=== PATIENT | female | born 2000 | race African-American/Black ===

== ENCOUNTER 2019-01-03 20:29 | Inpatient (IN) ==
[2019-01-03 21:16] LABS: Hematocrit (blood only) 35.6 % (37-47); Hemoglobin 11.8 g/dL (12.0-16.0); Mean Corpuscular Hemoglobin 27.8 pg (25-34); Mean Corpuscular Hgb Conc 33.1 g/dL (32-36); Mean Corpuscular Volume 83.8 fL (80-100); Mean Platelet Volume 10.3 fL (7.4-10.4); Platelet Count 313 K/uL (130-400); RDW Coefficient of Variation 14.2 % (11.5-14.5); RDW Standard Deviation 43.4 fL (36.4-46.3); Red Blood Count 4.25 M/uL (4.2-5.4)
[2019-01-03 21:19] LABS: Appearance Urine Clear (Clear); Bilirubin Urine Negative (Negative); Blood Urine Negative (Negative); Color Urine Yellow; Glucose Urine UA Negative (Negative); Ketones Urine Negative (Negative); Leukocyte Esterase Urine Negative (Negative); Nitrite Urine Negative (Negative); Protein Urine Negative (Negative); Specific Gravity Urine 1.014 (1.000-1.030); Urobilinogen Urine Negative (Negative); pH Urine 6.5 (4.5-7.5)
[2019-01-03] MEDS ORDERED: risperiDONE 1 MG TABLET PO STA (21:25)
[2019-01-03] MEDS ORDERED: DIVALPROEX EXTENDED RELEASE 500 MG TAB PO ONE (21:25)
[2019-01-03 21:33] LABS: BUN Creatinine Ratio 17.9 (10-20); Calcium 9.2 mg/dl (8.5-10.1); Creatinine Clr Calc Pharmacy 111.3 ml/min; Est GFR (African American) 120.2; Est GFR (Non-African American) 103.7; Potassium 3.5 mmol/L (3.5-5.1)
[2019-01-03 21:43] LABS: Bilirubin,Total 0.1 mg/dl (0.2-1); Thyroid Stimulating Hormone 3.11 uIu/ml (0.300-4.500)
[2019-01-03 21:44] LABS: Amphetamines+Metham, Urine Neg (Neg); Barbiturates, Urine Neg (Neg); Benzodiazepine, Urine Neg (Neg); Cocaine, Urine Neg (Neg); MDMA (Ecstacy), Urine Neg (Neg); Methadone, Urine Neg (Neg); Opiate, Urine Neg (Neg); Phencyclidine, Urine Neg (Neg)
[2019-01-03 21:54] LABS: Acetaminophen < 2 ug/ml (10-30); Salicylate 1.9 mg/dl (2.8-20); Valproic Acid 92 mcg/ml (50-100)
[2019-01-03 21:56] LABS: Basophils # (auto) 0.05 K/uL (0-0.2); Basophils % (auto) 0.6 %; Eosinophils # (auto) 0.25 K/uL (0-0.5); Eosinophils % (auto) 3.1 %; Immature Granulocytes # (auto) 0.02 K/uL (0.00-0.02); Immature Granulocytes % (auto) 0.3 %; Monocytes # (auto) 0.59 K/uL (0.11-0.59); Monocytes % (auto) 7.4 %; Neutrophils # (auto) 3.09 K/uL (1.4-6.5); Neutrophils % (auto) 38.6 %
[2019-01-03 22:01] LABS: Pregnancy Test, Serum Negative (Negative)
--- NOTE | 2019-01-04 00:49 | Emergency Department Note ---
Entered by Stephenie Solis acting as a scribe for Hilton Jones M.D. History of Present Illness General Chief complaint: Mental Health Evaluation Stated complaint: MHID Source: patient Mode of arrival: ambulatory Limitations: no limitations History of Present Illness Onset (ago): day(s) 1 Location: head Radiation: non-radiation Pain Consistency: + constant Relieved By: + none Exacerbated By: + none Associated symptoms: + denies other symptoms Treatments prior to arrival: none The patient is a 18 year old female with a PMHX of ADHD and bipolar disorder who presents to the ED with complaints of needing a mental health evaluation. 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 During intake, she was asked by nursing if she wanted to hurt herself, she admitted she had experienced suicidal ideations in the past and saw an image of "knives and blood and cutting". She notes she has missed her daily doses of Depakote and Risperdal today. She admits to some recent cold symptoms and states she is currently on a Z-Ricci. Staff report indicated she was screaming, crying and holding her breath there and scored very high on their SI assessment. Report again that patient stated to them she wanted something sharp to bleed to . Home Medications Home Medications Medication Instructions Recorded Confirmed Type azithromycin 250 mg PO DAILY 01/03/19 01/03/19 History divalproex [Depakote ER] 750 mg PO DAILY 01/03/19 01/03/19 History risperidone [Risperdal] 0.5 mg PO BID 01/03/19 01/03/19 History risperidone [Risperdal] 1 mg PO HS 01/03/19 01/03/19 History Past Med/Surg History Medical History Bipolar disorder Social History Feels Safe at Home: Yes Smoking Status: Current every day smoker Tobacco Type: cigarettes ; Review of Systems See HPI for pertinent positives & negatives. and A total of 10 systems reviewed and were otherwise negative Physical Exam Vital Signs Vital Signs - 24 hr 01/03/19 20:14 01/03/19 22:23 01/03/19 23:15 Temperature 37 C 36.9 C Temperature Source Oral Oral Sepsis Recent Fever Within 48 Hours No Sepsis New/Unexplained Change in Mental Status No Sepsis Action Taken by Nursing No Action Required Pulse Rate 78 Pulse Rate [Right Finger] 99 H Respiratory Rate 18 18 Respiratory Effort / Characteristics Non-Labored Respiratory Depth Normal Respiratory Pattern Regular Blood Pressure 140/96 Blood Pressure Mean 110 Blood Pressure Position Lying Pulse Oximetry 97 97 Oxygen Delivery Method Room Air Room Air GENERAL: Awake, alert, animated and talkative. HENT: Normocephalic, atraumatic. EYES: Normal conjunctiva. Sclera non-icteric. RESPIRATORY: Normal respiratory effort. CARDIAC: Normal rate. Normal rhythm. Extremities warm and well perfused. GI: Soft, non-distended. No tenderness to palpation. NEURO: No sensory or motor deficits noted. No facial droop. SKIN: Warm and dry. No rash or jaundice noted. PSYCHIATRIC: Patient denies SI or HI. She is slightly tangential. Course 2043: The patient was evaluated in room A7 and a complete history and physical were performed. 2206: Oliverio states the patient has been medically cleared. 0010: [facility] is going to collect a 302 petition from a facility that can accept the patient. 0045: A 302 for the patient has been signed. 0137: The patient has been accepted at [address] [place] [address], the Psychiatric care floor at [facility]. She will be further evaluated. Administered Medications Discontinued Medications Divalproex Sodium (Depakote Extended Release) 750 mg PO NOW ONE Stop: 01/03/19 21:26 Last Admin: 01/03/19 22:21 Dose: 750 mg Documented by: [id number] Risperidone (Risperdal) 1 mg PO ONE STA Stop: 01/03/19 21:26 Last Admin: 01/03/19 22:21 Dose: 1 mg Documented by: [id number] Medical Decision Making Differential Diagnosis Differential diagnoses considered include mood disorder, infection, hypoglycemia, electrolyte abnormalities, cardiac sources, intracerebral event, toxicologic, neurologic, as well as others. Medical Records Attestation: I reviewed the patient's medical records. Home Medications Current Medication List: was personally reviewed by me Laboratory Data Attestation: I reviewed the patient's lab results. Result diagrams: 01/03/19 20:57 01/03/19 20:57 Lab Results 01/03/19 01/03/19 01/03/19 Range/Units 20:57 20:57 20:57 WBC 8.00 (4.8-10.8) K/uL RBC 4.25 (4.2-5.4) M/uL Hgb 11.8 L (12.0-16.0) g/dL Hct 35.6 L (37-47) % MCV 83.8 (80-100) fL MCH 27.8 (25-34) pg MCHC 33.1 (32-36) g/dL RDW Std Deviation 43.4 (36.4-46.3) fL RDW Coeff of Keerthi 14.2 (11.5-14.5) % Plt Count 313 (130-400) K/uL MPV 10.3 (7.4-10.4) fL Immature Gran % (Auto) 0.3 % Neut % (Auto) 38.6 % Lymph % (Auto) 50.0 % [place] % (Auto) 7.4 % Eos % (Auto) 3.1 % Baso % (Auto) 0.6 % Immature Gran # (Auto) 0.02 (0.00-0.02) K/uL Neut # (Auto) 3.09 (1.4-6.5) K/uL Lymph # (Auto) 4.00 H (1.2-3.4) K/uL [place] # (Auto) 0.59 (0.11-0.59) K/uL Eos # (Auto) 0.25 (0-0.5) K/uL Baso # (Auto) 0.05 (0-0.2) K/uL Sodium 141 (136-145) mmol/L Potassium 3.5 (3.5-5.1) mmol/L Chloride 106 (98-107) mmol/L Carbon Dioxide 28 (21-32) mmol/L Anion Gap 6.0 (3-11) BUN 15 (7-18) mg/dl Creatinine 0.82 (0.6-1.2) mg/dl Est Cr Clr Drug Dosing 111.3 ml/min Est GFR ( Amer) 120.2 Est GFR (Non-Af Amer) 103.7 BUN/Creatinine Ratio 17.9 (10-20) Glucose 85 (70-99) mg/dl Calcium 9.2 (8.5-10.1) mg/dl Total Bilirubin 0.1 L (0.2-1) mg/dl AST 15 (15-37) U/L ALT 14 (12-78) U/L Alkaline Phosphatase 82 (45-117) U/L Total Protein 8.0 (6.4-8.2) gm/dl Albumin 4.0 (3.4-5.0) gm/dl Globulin 4.0 (2.5-4.0) gm/dl Albumin/Globulin Ratio 1.0 (0.9-2) TSH 3.110 (0.300-4.500) uIu/ml HCG, Qual (Negative) Urine Color Urine Appearance (Clear) Urine pH (4.5-7.5) Ur Specific [place] (1.000-1.030) Urine Protein (Negative) Urine Glucose (UA) (Negative) Urine Ketones (Negative) Urine Blood (Negative) Urine Nitrite (Negative) Urine Bilirubin (Negative) Urine Urobilinogen (Negative) Ur Leukocyte Esterase (Negative) Salicylates 1.9 L (2.8-20) mg/dl Urine Opiates Screen (Neg) Ur Methadone, Qual (Neg) Acetaminophen < 2 L (10-30) ug/ml Urine Barbiturates (Neg) Valproic Acid 92 (50-100) mcg/ml Ur Phencyclidine (PCP) (Neg) U Amphetamin/Meth Scrn (Neg) MDMA (Ecstasy) Screen (Neg) U Benzodiazepines Scrn (Neg) Ur Cocaine Metabolite (Neg) U Marijuana (THC) Screen (Neg) Ethyl Alcohol mg/dL (0-3) mg/dl 01/03/19 01/03/19 01/03/19 Range/Units 20:57 20:57 20:57 WBC (4.8-10.8) K/uL RBC (4.2-5.4) M/uL Hgb (12.0-16.0) g/dL Hct (37-47) % MCV (80-100) fL MCH (25-34) pg MCHC (32-36) g/dL RDW Std Deviation (36.4-46.3) fL RDW Coeff of Keerthi (11.5-14.5) % Plt Count (130-400) K/uL MPV (7.4-10.4) fL Immature Gran % (Auto) % Neut % (Auto) % Lymph % (Auto) % [place] % (Auto) % Eos % (Auto) % Baso % (Auto) % Immature Gran # (Auto) (0.00-0.02) K/uL Neut # (Auto) (1.4-6.5) K/uL Lymph # (Auto) (1.2-3.4) K/uL [place] # (Auto) (0.11-0.59) K/uL Eos # (Auto) (0-0.5) K/uL Baso # (Auto) (0-0.2) K/uL Sodium (136-145) mmol/L Potassium (3.5-5.1) mmol/L Chloride (98-107) mmol/L Carbon Dioxide (21-32) mmol/L Anion Gap (3-11) BUN (7-18) mg/dl Creatinine (0.6-1.2) mg/dl Est Cr Clr Drug Dosing ml/min Est GFR ( Amer) Est GFR (Non-Af Amer) BUN/Creatinine Ratio (10-20) Glucose (70-99) mg/dl Calcium (8.5-10.1) mg/dl Total Bilirubin (0.2-1) mg/dl AST (15-37) U/L ALT (12-78) U/L Alkaline Phosphatase (45-117) U/L Total Protein (6.4-8.2) gm/dl Albumin (3.4-5.0) gm/dl Globulin (2.5-4.0) gm/dl Albumin/Globulin Ratio (0.9-2) TSH (0.300-4.500) uIu/ml HCG, Qual Negative (Negative) Urine Color Urine Appearance (Clear) Urine pH (4.5-7.5) Ur Specific [place] (1.000-1.030) Urine Protein (Negative) Urine Glucose (UA) (Negative) Urine Ketones (Negative) Urine Blood (Negative) Urine Nitrite (Negative) Urine Bilirubin (Negative) Urine Urobilinogen (Negative) Ur Leukocyte Esterase (Negative) Salicylates (2.8-20) mg/dl Urine Opiates Screen (Neg) Ur Methadone, Qual (Neg) Acetaminophen (10-30) ug/ml Urine Barbiturates (Neg) Valproic Acid Cancelled (50-100) mcg/ml Ur Phencyclidine (PCP) (Neg) U Amphetamin/Meth Scrn (Neg) MDMA (Ecstasy) Screen (Neg) U Benzodiazepines Scrn (Neg) Ur Cocaine Metabolite (Neg) U Marijuana (THC) Screen (Neg) Ethyl Alcohol mg/dL < 3.0 (0-3) mg/dl 01/03/19 01/03/19 Range/Units 21:10 21:10 WBC (4.8-10.8) K/uL RBC (4.2-5.4) M/uL Hgb (12.0-16.0) g/dL Hct (37-47) % MCV (80-100) fL MCH (25-34) pg MCHC (32-36) g/dL RDW Std Deviation (36.4-46.3) fL RDW Coeff of Keerthi (11.5-14.5) % Plt Count (130-400) K/uL MPV (7.4-10.4) fL Immature Gran % (Auto) % Neut % (Auto) % Lymph % (Auto) % [place] % (Auto) % Eos % (Auto) % Baso % (Auto) % Immature Gran # (Auto) (0.00-0.02) K/uL Neut # (Auto) (1.4-6.5) K/uL Lymph # (Auto) (1.2-3.4) K/uL [place] # (Auto) (0.11-0.59) K/uL Eos # (Auto) (0-0.5) K/uL Baso # (Auto) (0-0.2) K/uL Sodium (136-145) mmol/L Potassium (3.5-5.1) mmol/L Chloride (98-107) mmol/L Carbon Dioxide (21-32) mmol/L Anion Gap (3-11) BUN (7-18) mg/dl Creatinine (0.6-1.2) mg/dl Est Cr Clr Drug Dosing ml/min Est GFR ( Amer) Est GFR (Non-Af Amer) BUN/Creatinine Ratio (10-20) Glucose (70-99) mg/dl Calcium (8.5-10.1) mg/dl Total Bilirubin (0.2-1) mg/dl AST (15-37) U/L ALT (12-78) U/L Alkaline Phosphatase (45-117) U/L Total Protein (6.4-8.2) gm/dl Albumin (3.4-5.0) gm/dl Globulin (2.5-4.0) gm/dl Albumin/Globulin Ratio (0.9-2) TSH (0.300-4.500) uIu/ml HCG, Qual (Negative) Urine Color Yellow Urine Appearance Clear (Clear) Urine pH 6.5 (4.5-7.5) Ur Specific [place] 1.014 (1.000-1.030) Urine Protein Negative (Negative) Urine Glucose (UA) Negative (Negative) Urine Ketones Negative (Negative) Urine Blood Negative (Negative) Urine Nitrite Negative (Negative) Urine Bilirubin Negative (Negative) Urine Urobilinogen Negative (Negative) Ur Leukocyte Esterase Negative (Negative) Salicylates (2.8-20) mg/dl Urine Opiates Screen Neg (Neg) Ur Methadone, Qual Neg (Neg) Acetaminophen (10-30) ug/ml Urine Barbiturates Neg (Neg) Valproic Acid (50-100) mcg/ml Ur Phencyclidine (PCP) Neg (Neg) U Amphetamin/Meth Scrn Neg (Neg) MDMA (Ecstasy) Screen Neg (Neg) U Benzodiazepines Scrn Neg (Neg) Ur Cocaine Metabolite Neg (Neg) U Marijuana (THC) Screen Neg (Neg) Ethyl Alcohol mg/dL (0-3) mg/dl Blood Pressure Blood Pressure Findings: Elevated blood pressure Blood Pressure Disposition: elevated BP felt to be situational MDM Narrative Patient is a 18-year-old female presenting via ambulance today with a complaint of wanting to harm her self. Was evidently at [facility] for rehab and intake fair medications comfortably start to try to cut herself and bleed to . Brought here as she was agitated prior to arrival. Reported history of meth abuse. Patient upon arrival here states to me that she states he has had thoughts this in the past but would not actively want to do that. States that she was to try to be honest with the nurse that she is had thoughts of this. States she did meet actually when herself. States she was to go back to the [facility] for further care. She declines wanting inpatient psychiatric treatment at this time. States she also missed several doses of her medications today including Depakote and this is making her more anxious. Patient is slightly animated here but NOT truly manic.. She denies any SI or HI to me. She states she just at the start in the past second case filler was involved with evaluation. Basic medical clearance was completed. Given evening medications of Resporal and Depakote. Discussed with psychiatric case filler who talked with can help and went to the facility to get a 302 petition from staff at [facility]. This returned and I completed the 302 as I feel she is at high risk to injure herself given her changing story and the severe reports from this petition. Bed search initiated. Evaled by [facility] and accepted there for further care. Impression & Plan Suicidal thoughts, Mood disorder Discharge Plan Visit Data Chief Complaint: Mental Health Evaluation Stated Complaint: MHID ED Provider: Hilton Jones Discharge Problem: Suicidal thoughts, Mood disorder Patient Disposition: Still a Patient Forms Stand Alone Forms: My [facility] Prescriptions Prescriptions: No Action azithromycin 250 mg Tablet 250 mg PO DAILY RF: 0 risperidone [Risperdal] 0.25 mg Tablet 0.5 mg PO BID RF: 0 divalproex [Depakote ER] 500 mg Tablet Extended Release 24 Hr 750 mg PO DAILY RF: 0 risperidone [Risperdal] 1 mg Tablet 1 mg PO HS RF: 0 Referrals Referrals: PCP,NO [Primary Care Provider] - The scribe's documentation has been prepared under my direction and personally reviewed by me in its entirety. I confirm that the note above accurately reflects all work, treatment, procedures, and medical decision making performed by me.
[2019-01-04] MEDS ORDERED: SODIUM CHLORIDE 0.65% NA SOLN 45 ML (OCEAN) PRN (02:02)
[2019-01-04] MEDS ORDERED: ACETAMINOPHEN 325 MG TAB PO PRN (02:02)
[2019-01-04] MEDS ORDERED: MAGNESIUM HYDROXIDE SUSP 30 ML UDC PO PRN (02:02)
[2019-01-04] MEDS ORDERED: BISMUTH SUBSALICYLATE PER ML OMNICELL CHARGE PO PRN (02:02)
[2019-01-04] MEDS ORDERED: ALUMINUM/MAGNESIUM SUSP 30 ML UDC PO PRN (02:02)
--- NOTE | 2019-01-04 13:25 | History & Physical ---
Date of Service January 04, 2019 Impression / Recommendations Protective Factors Assessment Employed: No Psychiatric History Identifying Data CARINE GOODEN is a 18-year-old F who currently lives in [] [alone] with [], has a history of [], and was admitted on 01/04/19 01:31 on a [201 voluntary] [302 involuntary] commitment for []. Chief Complaint "[]". ddddd Past Psychiatric History Current Psychiatric Diagnosis: Biploar, Substance use disorder, attention deficit hyperactive disorde Describe Attempts in the Past: Denies Allergies Allergy/AdvReac Type Severity Reaction Status Date / Time No Known Allergies Allergy Unverified 01/04/19 06:56 Home Medications Home Medications Medication Instructions Recorded Confirmed Type azithromycin 250 mg PO DAILY 01/03/19 01/03/19 History divalproex [Depakote ER] 750 mg PO DAILY 01/03/19 01/03/19 History risperidone [Risperdal] 0.5 mg PO BID 01/03/19 01/03/19 History risperidone [Risperdal] 1 mg PO HS 01/03/19 01/03/19 History Family History Family History of: Doesn't Know Family Mental Health History Comment: Patient was adopted near and was born to an addicted mother. Alcohol History Hx of Alcohol Use Over the Past 12 Months: No AUDIT Total Score: 0 Smoking Use Have You Smoked or Used Tobacco Products in the Last 30 Days: Yes tobacco type: cigarettes Smoking Status: Current every day smoker Smoking packs per day: 0.25 Substance History Hx of Prescription Med Misuse Over the Past 12 Months: No Hx of Over the Counter Med Misuse Over the Past 12 Months: No Hx of Inhalent Misuse Over the Past 12 Months: No Hx of Organic Substance Use Over the Past 12 Months: No Hx of Illegal Substances/Street Drug Use Over Past 12 Months: Yes ("No meth since December") Problems as a Result of Past Substance Use: Other Problems as a Result of Past Substance Use Comments: Legal problems Personal History Living Arrangements: Home Living Arrangements Comments: Pt lives with adopted family in a home. Highest Grade Completed: High School Graduate Marital Status: Single Number Of Children: 0 Legal Problems Comment: Pt is currently engaged in [employer] for possession of drug paraphernalia. 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 Feels Safe at Home: Yes Smoking Status: Current every day smoker Tobacco Type: cigarettes ; Physical Exam Vital Signs (Past 24 Hours): Last Vital Signs Temp 36.9 C 01/04/19 02:06 Pulse 66 01/04/19 02:06 Resp 16 01/04/19 02:06 BP 113/62 01/04/19 02:06 Pulse Ox 99 01/04/19 02:06 Results & Data Laboratory Results Laboratory Results - last 24 hr 01/03/19 01/03/19 01/03/19 20:57 20:57 20:57 WBC 8.00 RBC 4.25 Hgb 11.8 L Hct 35.6 L MCV 83.8 MCH 27.8 MCHC 33.1 RDW Std Deviation 43.4 RDW Coeff of Keerthi 14.2 Plt Count 313 MPV 10.3 Immature Gran % (Auto) 0.3 Neut % (Auto) 38.6 Lymph % (Auto) 50.0 [place] % (Auto) 7.4 Eos % (Auto) 3.1 Baso % (Auto) 0.6 Immature Gran # (Auto) 0.02 Neut # (Auto) 3.09 Lymph # (Auto) 4.00 H [place] # (Auto) 0.59 Eos # (Auto) 0.25 Baso # (Auto) 0.05 Sodium 141 Potassium 3.5 Chloride 106 Carbon Dioxide 28 Anion Gap 6.0 BUN 15 Creatinine 0.82 Est Cr Clr Drug Dosing 111.3 Est GFR ( Amer) 120.2 Est GFR (Non-Af Amer) 103.7 BUN/Creatinine Ratio 17.9 Glucose 85 Calcium 9.2 Total Bilirubin 0.1 L AST 15 ALT 14 Alkaline Phosphatase 82 Total Protein 8.0 Albumin 4.0 Globulin 4.0 Albumin/Globulin Ratio 1.0 TSH 3.110 HCG, Qual Urine Color Urine Appearance Urine pH Ur Specific [place] Urine Protein Urine Glucose (UA) Urine Ketones Urine Blood Urine Nitrite Urine Bilirubin Urine Urobilinogen Ur Leukocyte Esterase Nasal Screen MRSA (PCR) Salicylates 1.9 L Urine Opiates Screen Ur Methadone, Qual Acetaminophen < 2 L Urine Barbiturates Valproic Acid 92 Ur Phencyclidine (PCP) U Amphetamin/Meth Scrn MDMA (Ecstasy) Screen U Benzodiazepines Scrn Ur Cocaine Metabolite U Marijuana (THC) Screen Ethyl Alcohol mg/dL 01/03/19 01/03/19 01/03/19 20:57 20:57 20:57 WBC RBC Hgb Hct MCV MCH MCHC RDW Std Deviation RDW Coeff of Keerthi Plt Count MPV Immature Gran % (Auto) Neut % (Auto) Lymph % (Auto) [place] % (Auto) Eos % (Auto) Baso % (Auto) Immature Gran # (Auto) Neut # (Auto) Lymph # (Auto) [place] # (Auto) Eos # (Auto) Baso # (Auto) Sodium Potassium Chloride Carbon Dioxide Anion Gap BUN Creatinine Est Cr Clr Drug Dosing Est GFR ( Amer) Est GFR (Non-Af Amer) BUN/Creatinine Ratio Glucose Calcium Total Bilirubin AST ALT Alkaline Phosphatase Total Protein Albumin Globulin Albumin/Globulin Ratio TSH HCG, Qual Negative Urine Color Urine Appearance Urine pH Ur Specific [place] Urine Protein Urine Glucose (UA) Urine Ketones Urine Blood Urine Nitrite Urine Bilirubin Urine Urobilinogen Ur Leukocyte Esterase Nasal Screen MRSA (PCR) Salicylates Urine Opiates Screen Ur Methadone, Qual Acetaminophen Urine Barbiturates Valproic Acid Cancelled Ur Phencyclidine (PCP) U Amphetamin/Meth Scrn MDMA (Ecstasy) Screen U Benzodiazepines Scrn Ur Cocaine Metabolite U Marijuana (THC) Screen Ethyl Alcohol mg/dL < 3.0 01/03/19 01/03/19 01/04/19 21:10 21:10 09:15 WBC RBC Hgb Hct MCV MCH MCHC RDW Std Deviation RDW Coeff of Keerthi Plt Count MPV Immature Gran % (Auto) Neut % (Auto) Lymph % (Auto) [place] % (Auto) Eos % (Auto) Baso % (Auto) Immature Gran # (Auto) Neut # (Auto) Lymph # (Auto) [place] # (Auto) Eos # (Auto) Baso # (Auto) Sodium Potassium Chloride Carbon Dioxide Anion Gap BUN Creatinine Est Cr Clr Drug Dosing Est GFR ( Amer) Est GFR (Non-Af Amer) BUN/Creatinine Ratio Glucose Calcium Total Bilirubin AST ALT Alkaline Phosphatase Total Protein Albumin Globulin Albumin/Globulin Ratio TSH HCG, Qual Urine Color Yellow Urine Appearance Clear Urine pH 6.5 Ur Specific [place] 1.014 Urine Protein Negative Urine Glucose (UA) Negative Urine Ketones Negative Urine Blood Negative Urine Nitrite Negative Urine Bilirubin Negative Urine Urobilinogen Negative Ur Leukocyte Esterase Negative Nasal Screen MRSA (PCR) Negative Salicylates Urine Opiates Screen Neg Ur Methadone, Qual Neg Acetaminophen Urine Barbiturates Neg Valproic Acid Ur Phencyclidine (PCP) Neg U Amphetamin/Meth Scrn Neg MDMA (Ecstasy) Screen Neg U Benzodiazepines Scrn Neg Ur Cocaine Metabolite Neg U Marijuana (THC) Screen Neg Ethyl Alcohol mg/dL Current Inpatient Medications Current Inpatient Medications: Current Inpatient Medications Acetaminophen (Tylenol) 650 mg PO Q4H PRN PRN Reason: Headache or Minor Fever Stop: 02/03/19 02:01 Al Hydrox/Mg Hydrox/Simethicone (Maalox) 30 ml PO Q4H PRN PRN Reason: GI Upset Stop: 02/03/19 02:01 Bismuth Subsalicylate (Kaopectate) 15 ml PO PRN PRN PRN Reason: Loose Stool Stop: 02/03/19 02:01 Divalproex Sodium (Depakote Extended Release) 500 mg PO DAILY KYREE Stop: 02/03/19 13:14 Divalproex Sodium (Depakote Extended Release) 1,000 mg PO HS KYREE Stop: 02/03/19 21:59 Haloperidol (Haldol) 2.5 mg PO BID PRN PRN Reason: Agitation Stop: 02/03/19 20:59 Hydroxyzine HCl (Vistaril) 50 mg PO HSZ PRN PRN Reason: Insomnia Stop: 02/03/19 02:01 Hydroxyzine HCl (Vistaril) 25 mg PO Q4H PRN PRN Reason: Anxiety Stop: 02/03/19 02:01 Magnesium Hydroxide (Milk Of Magnesia) 30 ml PO DAILY PRN PRN Reason: Constipation Stop: 02/03/19 02:01 Miscellaneous (Remove Nicoderm Patch) 1 ea N/A HS KYREE Stop: 02/03/19 20:59 Nicotine (Nicoderm Cq) 21 mg TD QAM KYREE Stop: 02/03/19 12:59 Nicotine Polacrilex (Nicorette 2mg) 1 piece MT PRN PRN PRN Reason: cravings Stop: 02/03/19 12:05 Sodium Chloride (Rowan Nasal) 1 - 2 sprays NA PRN PRN PRN Reason: Nasal Dryness/Congestion Stop: 02/03/19 02:01 CPT Code CPT Code Initial Hospital Care: 49922
[2019-01-04] MEDS: NICOTINE 21 MG/24 HR TDSY TD SCH (13:37)
[2019-01-04] MEDS: haloperidoL 5 MG TAB PO PRN ×2 (13:39→18:38)
[2019-01-04] MEDS: DIVALPROEX EXTENDED RELEASE 500 MG TAB PO SCH ×2 (13:39→21:01)
--- NOTE | 2019-01-04 16:11 | History & Physical ---
Date of Service January 04, 2019 Impression / Recommendations Impression 18 yr old female with bipolar d/o and substance use disorder (meth and cannabis), extensive aims at substance treatment but not able to maintain sobriety to date. last Meth usage reported to be Dec 14, approx 17 days at [facility] and as attempting to have intake process at [facility] (transition there from [facility]) was sent to Er over her labile and agitated behaviors and occurs about her SI. PT is admitted on a 302. She is highly labile and easily agitated and with symptoms consistent with manic presentation. Pt feels Risperdal has not been helpful, she thinks Depakote er was increased to 2250mg t otal dose but nurses discharge summary from [facility] shows only 1250mg in two separate doses but is possible do not have the full med rec. Pt was on Risperdal at 2 mg total dose in divided dose and does not think it was helpful. She reports Seroquel and Haldol were helpful in the past and only stopped over poor compliance concerns and cannabis usage concerns per pt. Pt wants to return to [facility] since she believes that program would help her become sober. She has an outpt psychiatrist but does not appear to have a current outpt therapist Bipolar Disorder -resume Depakote Er will start at 500mg am and 1000ms hs given above and current presentation -stop risperdal -started haldol at 2.5mg bid scheduled with haldol 2.5mg prn bid for agitation as well -individual and group therapy during inpt milieu therapy aftercare coordination including psychotherapy and psychiatric appointments, although pt is aiming for inpt substance treatment following discharge social work holding any trazodone for now given potential for that med to destabilize pt given her manic symptoms Substance Use Disorder -address with [facility] to see about discharge to their facility once psychiatric stabilized, for inpt substance treatment -nicotinue patch and nicotnien gum for NUD Risk Factors Assessment Male: No : No Mental Health Diagnoses: Yes Substance Use Disorders: Yes Previous Attempt: No Smoker: Yes Psychiatric History Identifying Data CARINE GOOEDN is a 18-year-old F who currently lives in [facility] with her parents, has a history of bipolar disorder and Meth use disorder and cannabis use disorder, and was admitted on 01/04/19 01:31 on a 302 involuntary commitment for suicidal concerns. Chief Complaint "I need to get back to [facility] once I leave here". History of Present Illness 18 yr old female with bipolar d/o and substance use disorder of meth and cannabis usage. Pt has had extensive substance treatment recently and was sent to the ER from [facility] on 01/03 due to suicidal concerns and agitated behaviors. Pt had been obtaining treatment at "[facility]" for "17 days" and decided that she did not find it helpful enough and thus switched to [facility] for her treatment. By her description she appeared to have been Sent to the ER while in midst of intake/admission assessments at [facility]. This would be her 2nd [facility] treatment as had one staeting late July 2018 for 30 days that followed with [facility] (equine based treatment) from [id number]. She reports she maintained her sobriety from then till October 16 and then began using meth daily with last usage Dec 14, 2018. She reported using meth few times a few times a week prior to her August in substance treatment and that been using it for about a year or so now. Pt uses cannabis frequently as well However she appears invested in continuing her cannabis usage and made comments about seeking a medical card for it. She denied alcohol usage. She smokes cigs at about 1 ppd. She endorsed using Xanax or Klonopin at times to settle her down when intoxicated from meth with last usage of it in mid November. She denied h/o Suicide attempts or SIB. She denied HI. She endorsed being manic and having been manic for some time now. She reports that she has been on Depakote for number of years. She reports Risperdal was added while at [facility]. She feels Risperdal has not been helpful. Pt has found Haldol to be q uite helpful in the past. Another med that she found helpful in the past was Seroquel. She reports having a psychiatrist, Dr. aldrich at [facility]. She reports having IOP treatment in June 2018. She reports that last saw her outpt therapist perhaps Mar 2018. It appears she has not been to the IOP since July but sba underwriter not certain. Pt was adopted in first months of life, was cocaine [facility]. Pt endorses times of AH madina when high on meth. She denied AH currently. She feels she has ADHD but sba underwriter is wondering if she is more referring to her racing thoughts and increased goal directed activity tied to her manic states. She reports that depakote was increased to 2250mg total dose, (paper shows 500mg am and 750mg 3pm with pt indicating a bedtime dose of perhaps 500mg as well), Risperdal 0.5mg am and 0.5mg 1pm and 1mg 9pm. Pt reports also taking trazodone 200mg hs (not on paper by the retreat but paper does seem to possibly go past the one page sba underwriter has access to.) Pt is highly invested in returning to [facility]. She has pressured speech, racing thoughts, labile mood, psychomotor agitation, hard to sit still, hard to remain on one subject, tangential thinking, increased goal directed behavior., decreased sleep Past Psychiatric History Previous Psych History: As above in HPI pt has tried abilify and lamictal in past as well as med described above Current Psychiatric Diagnosis: Biploar, Substance use disorder, attention deficit hyperactive disorde History of Previous Suicide Attempt: No Describe Attempts in the Past: Denies Allergies Allergy/AdvReac Type Severity Reaction Status Date / Time No Known Allergies Allergy Unverified 01/04/19 06:56 Home Medications Home Medications Medication Instructions Recorded Confirmed Type azithromycin 250 mg PO DAILY 01/03/19 01/03/19 History divalproex [Depakote ER] 750 mg PO DAILY 01/03/19 01/03/19 History risperidone [Risperdal] 0.5 mg PO BID 01/03/19 01/03/19 History risperidone [Risperdal] 1 mg PO HS 01/03/19 01/03/19 History Family History Family History of: Doesn't Know Family Mental Health History Comment: Patient was adopted near and was born to an addicted mother. Alcohol History Hx of Alcohol Use Over the Past 12 Months: No AUDIT Total Score: 0 Smoking Use Have You Smoked or Used Tobacco Products in the Last 30 Days: Yes tobacco type: cigarettes Smoking Status: Current every day smoker Smoking packs per day: 1 Substance History Hx of Prescription Med Misuse Over the Past 12 Months: Yes (xanx or klonopin taken at times when high on meth to help settle down ) Hx of Over the Counter Med Misuse Over the Past 12 Months: No Hx of Inhalent Misuse Over the Past 12 Months: No Hx of Organic Substance Use Over the Past 12 Months: No Hx of Illegal Substances/Street Drug Use Over Past 12 Months: Yes ("No meth since December") Problems as a Result of Past Substance Use: Other Problems as a Result of Past Substance Use Comments: Legal problems, hallucinations, out of control behaviors Personal History Living Arrangements: Home Living Arrangements Comments: Pt lives with adopted family in a home. 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 Jones and consider adequate and appropriate for purpose of this admission Physical Exam Psychiatric: Orientation: alert, oriented x 3 and cooperative Apperance: appropriately groomed Eye Contact: good eye contact Motor Behavior: + psychomotor agitation Speech: + pressured speech Affect: + labile affect Mood: + angry mood and excited mood Thought Process: + tangential thought process Thought Content: + cognitive distortions Suicidal Thoughts: denies suicidal thoughts Homicidal Thoughts: denies homicidal thoughts Hallucinations: no auditory hallucinations and no visual hallucinations Cognition: recent memory grossly intact and remote memory grossly intact Estimated Intelligence: average estimated intelligence Insight: + limited insight Judgement: + impaired judgement Vital Signs (Past 24 Hours): Last Vital Signs Temp 36.9 C 01/04/19 02:06 Pulse 66 01/04/19 02:06 Resp 16 01/04/19 02:06 BP 113/62 01/04/19 02:06 Pulse Ox 99 01/04/19 02:06 Results & Data Laboratory Results Laboratory Results - last 24 hr 01/03/19 01/03/1901/03/19 20:57 20:57 20:57 WBC 8.00 RBC 4.25 Hgb 11.8 L Hct 35.6 L MCV 83.8 MCH 27.8 MCHC 33.1 RDW Std Deviation 43.4 RDW Coeff of Keerthi 14.2 Plt Count 313 MPV 10.3 Immature Gran % (Auto) 0.3 Neut % (Auto) 38.6 Lymph % (Auto) 50.0 Marin % (Auto) 7.4 Eos % (Auto) 3.1 Baso % (Auto) 0.6 Immature Gran # (Auto) 0.02 Neut # (Auto) 3.09 Lymph # (Auto) 4.00 H Marin # (Auto) 0.59 Eos # (Auto) 0.25 Baso # (Auto) 0.05 Sodium 141 Potassium 3.5 Chloride 106 Carbon Dioxide 28 Anion Gap 6.0 BUN 15 Creatinine 0.82 Est Cr Clr Drug Dosing 111.3 Est GFR ( Amer) 120.2 Est GFR (Non-Af Amer) 103.7 BUN/Creatinine Ratio 17.9 Glucose 85 Calcium 9.2 Total Bilirubin 0.1 L AST 15 ALT 14 Alkaline Phosphatase 82 Total Protein 8.0 Albumin 4.0 Globulin 4.0 Albumin/Globulin Ratio 1.0 TSH 3.110 HCG, Qual Urine Color Urine Appearance Urine pH Ur Specific [place] Urine Protein Urine Glucose (UA) Urine Ketones Urine Blood Urine Nitrite Urine Bilirubin Urine Urobilinogen Ur Leukocyte Esterase Nasal Screen MRSA (PCR) Salicylates 1.9 L Urine Opiates Screen Ur Methadone, Qual Acetaminophen < 2 L Urine Barbiturates Valproic Acid 92 Ur Phencyclidine (PCP) U Amphetamin/Meth Scrn MDMA (Ecstasy) Screen U Benzodiazepines Scrn Ur Cocaine Metabolite U Marijuana (THC) Screen Ethyl Alcohol mg/dL 01/03/19 01/03/19 01/03/19 20:57 20:57 20:57 WBC RBC Hgb Hct MCV MCH MCHC RDW Std Deviation RDW Coeff of Keerthi Plt Count MPV Immature Gran % (Auto) Neut % (Auto) Lymph % (Auto) Marin % (Auto) Eos % (Auto) Baso % (Auto) Immature Gran # (Auto) Neut # (Auto) Lymph # (Auto) Marin # (Auto) Eos # (Auto) Baso # (Auto) Sodium Potassium Chloride Carbon Dioxide Anion Gap BUN Creatinine Est Cr Clr Drug Dosing Est GFR ( Amer) Est GFR (Non-Af Amer) BUN/Creatinine Ratio Glucose Calcium Total Bilirubin AST ALT Alkaline Phosphatase Total Protein Albumin Globulin Albumin/Globulin Ratio TSH HCG, Qual Negative Urine Color Urine Appearance Urine pH Ur Specific [place] Urine Protein Urine Glucose (UA) Urine Ketones Urine Blood Urine Nitrite Urine Bilirubin Urine Urobilinogen Ur Leukocyte Esterase Nasal Screen MRSA (PCR) Salicylates Urine Opiates Screen Ur Methadone, Qual Acetaminophen Urine Barbiturates Valproic Acid Cancelled Ur Phencyclidine (PCP) U Amphetamin/Meth Scrn MDMA (Ecstasy) Screen U Benzodiazepines Scrn Ur Cocaine Metabolite U Marijuana (THC) Screen Ethyl Alcohol mg/dL < 3.0 01/03/19 01/03/19 01/04/19 21:10 21:10 09:15 WBC RBC Hgb Hct MCV MCH MCHC RDW Std Deviation RDW Coeff of Keerthi Plt Count MPV Immature Gran % (Auto) Neut % (Auto) Lymph % (Auto) Marin % (Auto) Eos % (Auto) Baso % (Auto) Immature Gran # (Auto) Neut # (Auto) Lymph # (Auto) Marin # (Auto) Eos # (Auto) Baso # (Auto) Sodium Potassium Chloride Carbon Dioxide Anion Gap BUN Creatinine Est Cr Clr Drug Dosing Est GFR ( Amer) Est GFR (Non-Af Amer) BUN/Creatinine Ratio Glucose Calcium Total Bilirubin AST ALT Alkaline Phosphatase Total Protein Albumin Globulin Albumin/Globulin Ratio TSH HCG, Qual Urine Color Yellow Urine Appearance Clear Urine pH 6.5 Ur Specific [place] 1.014 Urine Protein Negative Urine Glucose (UA) Negative Urine Ketones Negative Urine Blood Negative Urine Nitrite Negative Urine Bilirubin Negative Urine Urobilinogen Negative Ur Leukocyte Esterase Negative Nasal Screen MRSA (PCR) Negative Salicylates Urine Opiates Screen Neg Ur Methadone, Qual Neg Acetaminophen Urine Barbiturates Neg Valproic Acid Ur Phencyclidine (PCP) Neg U Amphetamin/Meth Scrn Neg MDMA (Ecstasy) Screen Neg U Benzodiazepines Scrn Neg Ur Cocaine Metabolite Neg U Marijuana (THC) Screen Neg Ethyl Alcohol mg/dL Current Inpatient Medications Current Inpatient Medications: Current Inpatient Medications Acetaminophen (Tylenol) 650 mg PO Q4H PRN PRN Reason: Headache or Minor Fever Stop: 02/03/19 02:01 Al Hydrox/Mg Hydrox/Simethicone (Maalox) 30 ml PO Q4H PRN PRN Reason: GI Upset Stop: 02/03/19 02:01 Bismuth Subsalicylate (Kaopectate) 15 ml PO PRN PRN PRN Reason: Loose Stool Stop: 02/03/19 02:01 Divalproex Sodium (Depakote Extended Release) 500 mg PO DAILY KYREE Stop: 02/03/19 13:14 Last Admin: 01/04/19 13:39 Dose: 500 mg Documented by: Divalproex Sodium (Depakote Extended Release) 1,000 mg PO HS [facility] Stop: 02/03/19 21:59 Haloperidol (Haldol) 2.5 mg PO BID PRN PRN Reason: Agitation Stop: 02/03/19 20:59 Last Admin: 01/04/19 13:39 Dose: 2.5 mg Documented by: Hydroxyzine HCl (Vistaril) 50 mg PO HSZ PRN PRN Reason: Insomnia Stop: 02/03/19 02:01 Hydroxyzine HCl (Vistaril) 25 mg PO Q4H PRN PRN Reason: Anxiety Stop: 02/03/19 02:01 Magnesium Hydroxide (Milk Of Magnesia) 30 ml PO DAILY PRN PRN Reason: Constipation Stop: 02/03/19 02:01 Miscellaneous (Remove Nicoderm Patch) 1 ea N/A HS [facility] Stop: 02/03/19 20:59 Nicotine (Nicoderm Cq) 21 mg TD QAM [facility] Stop: 02/03/19 12:59 Last Admin: 01/04/19 13:37 Dose: 21 mg Documented by: Nicotine Polacrilex (Nicorette 2mg) 1 piece MT PRN PRN PRN Reason: cravings Stop: 02/03/19 12:05 Sodium Chloride (H. Rivera Colon Nasal) 1 - 2 sprays NA PRN PRN PRN Reason: Nasal Dryness/Congestion Stop: 02/03/19 02:01 CPT Code CPT Code Initial Hospital Care: [id number]
[2019-01-04] MEDS: NICOTINE POLACRILEX 2 MG GUM MT PRN (19:12)
[2019-01-05] MEDS: NICOTINE 21 MG/24 HR TDSY TD SCH (09:33)
[2019-01-05] MEDS: DIVALPROEX EXTENDED RELEASE 500 MG TAB PO SCH ×2 (09:33→21:02)
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
[2019-01-05] MEDS: haloperidoL 5 MG TAB PO PRN (14:05)
[2019-01-05] MEDS: NICOTINE POLACRILEX 2 MG GUM MT PRN (14:06)
[2019-01-06] MEDS: NICOTINE 21 MG/24 HR TDSY TD SCH (09:37)
[2019-01-06] MEDS: DIVALPROEX EXTENDED RELEASE 500 MG TAB PO SCH ×2 (09:37→21:34)
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
[2019-01-06] MEDS: haloperidoL 5 MG TAB PO PRN ×2 (10:38→17:21)
[2019-01-06] MEDS: NICOTINE POLACRILEX 2 MG GUM MT PRN ×3 (10:39→19:26)
[2019-01-07] MEDS: DIVALPROEX EXTENDED RELEASE 500 MG TAB PO SCH ×2 (10:17→21:14)
[2019-01-07] MEDS: NICOTINE 21 MG/24 HR TDSY TD SCH (10:18)
[2019-01-07] MEDS: NICOTINE POLACRILEX 2 MG GUM MT PRN ×2 (10:21→15:50)
[2019-01-07] MEDS: haloperidoL 5 MG TAB PO PRN ×2 (10:21→15:49)
--- NOTE | 2019-01-07 10:26 | Psychiatric Progress Note ---
Date of Service January 07, 2019 Impression / Recommendations Impression 18 yr old female with bipolar d/o and substance use disorder (meth and cannabis), extensive aims at substance treatment but not able to maintain sobriety to date. last Meth usage reported to be Dec 14, approx 17 days at [facility] and as attempting to have intake process at [facility] (transition there from [facility]) was sent to [facility] over her labile and agitated behaviors and occurs about her SI. PT is admitted on a 302. She was labile and easily agitated on admission, and appeared manic. While patient remains somewhat elevated, she has been compliant with recommended treatment and her current behavior is no longer perceived to cause her acute risk of harm to herself. Pt has been re- started on Depakote, which has been titrated to a dose of 500mg qAM and 1500mg qHS. Valproic acid level was requested from a rehab facility considering acceptance. Level was 113 this AM - which is only a 12 hour trough. As is the nature of Depakote, level will need to be monitored routinely to determine dosage needs. At this time, patient is tolerating the medication and does not appear to demonstrate any signs of toxicity. Pt continues to report desire to return to a D&A rehabilitation program after discharge. She has an established outpatient psychiatrist. Pt's 302 expires 01/09 at 00:45 and she does not meet criteria for extended commitment. Discharge today is possibly depending on information gathered from rehab referrals, discharge will occur tomorrow at the latest. Although acute risk of harm to self or others has been mitigated, and it seems appropriate for the patient to continue treatment outside of an inpatient psychiatric unit, her risk of harm to self remains greater than the general population if she is not discharged directly to a D&A rehab facility where she can begin work on her substance abuse treatment. Inpatient psychiatric admission is required until a clear discharge plan can be organized. (1) Suicidal thoughts: - Admitted to a locked inpatient behavioral health unit, on q15 minute safety checks - Encourage medication initiation/adjustments as indicated - Encourage participation in group and recreational therapies - Gather collateral information from outpatient providers - Suggest family meeting to involve outpatient supports in safety planning - Arrange appropriate aftercare 01/05 - Pt denies SI, stating she was not suicidal at admission - she does admit to making provocative statements at [facility] which would have created concern for patient safety 01/06 - Pt continues to deny SI, is future oriented in conversation, and remains highly motivated to get to an inpatient D&A rehab facility after discharge - No acute safety concerns at this time (2) Bipolar disorder: 01/04 -resume Depakote Er will start at 500mg am and 1000ms hs given above and current presentation -stop risperdal -started haldol at 2.5mg bid scheduled with haldol 2.5mg prn bid for agitation as well -individual and group therapy during inpt milieu therapy aftercare coordination including psychotherapy and psychiatric appointments, although pt is aiming for inpt substance treatment following discharge social work holding any trazodone for now given potential for that med to destabilize pt given her manic symptoms 01/05 - Continue Depakote 500mg/1000mg - patient continues to appear manic - may require further titration of dosage - Haloperidol was only ordered 2.5mg BID prn - will continue with only prn dosing - as patient has openly given her reasoning for requesting doses to be "to take a nap" or "to chill, like a Xanny"; given patient seems to be utilizing the medication with intention to fulfil addictive traits, will refrain from scheduling additional medication at this time - Pt continues to report desire to return to [facility] at discharge; we have been told the facility will consider another admission when patient is appropriate for referral 01/06 - Pt is agreeable to titration of Depakote to 500mg/1500mg daily in attempts to further stabilize mood, as she continues to display a manic presentation - Will continue attempts to explore if [facility] will consider the patient for return after discharge from our facility 01/07 - Pt to continue Depakote at 500mg/1500mg daily for mood stabilization, she denies side effects from medication adjustment made yesterday - Valproic acid level was requested from rehab facility, level was 113. Level drawn this AM is not a true 24-hour trough due to BID dosing schedule. She denies side effects, no AMS, and does not appear to be toxic. As is the nature of Depakote, level will need to be monitored periodically and dose adjusted to adequately treat mood symptoms - Pt appears to be psychiatrically stable with no acute safety concerns, seems appropriate to continue treatment in an inpatient D&A rehabilitation facility that is better equipped to address her most significant ongoing concerns of substance abuse (3) Substance use disorder: 01/04 -address with [facility] to see about discharge to their facility once psychiatric stabilized, for inpt substance treatment -nicotine patch and nicotine gum for NUD 01/05 - Continue efforts to determine if patient would be accepted back at [facility] at discharge - Continue recovery protocol -Brief intervention was offered and accepted Intervention was greater than 5 min in length. Brief interventions include: 1. Assess Readiness to Quit, 2. Advise: Help Patient to Reduce or Abstain from Alcohol, 3. Agree: Set Specific, Feasible Goals, 4. Assist: Anticipate barriers, Problem-Solving Solutions. Social work to 5. Arrange: Referrals to appropriate treatment. Summary of intervention: The patient is in contemplative stage with regards to transtheoretical model of change. She reports motivation to remain sober, but her verbalized plan relies on extrinsic motivation and there is a decent amount of blame placing with regard to past treatment roadblocks. The patient is advised to decrease alcohol consumption due to depressant effects and risk of interactions with prescription medications. The patient was advised of recommendations for abstinence from alcohol and other abusable substances and to attend substance abuse treatment at discharge, and will be provided with recovery materials to continue to education self on how to cope with their condition without drinking. 01/07 - Pt continues to be highly focused on returning to an inpatient D&A rehab facility to begin her substance abuse treatment - We are now exploring a facility called [facility], pt informed of program and is hopeful for admission - If unable to get transfer from our facility, it is recommended that patient and family continue attempts at rehab admission on an outpatient basis as patient remains motivated for treatment Risk Factors Assessment Male: No : No Mental Health Diagnoses: Yes Substance Use Disorders: Yes Previous Attempt: No Smoker: Yes Protective Factors Assessment Employed: No Interval History Identifying Information CARINE GOODEN is a 18-year-old F who currently lives in [place] with her parents, has a history of bipolar disorder and Meth use disorder and cannabis use disorder, and was admitted on 01/04/19 01:31 on a 302 involuntary commitment for suicidal concerns. Chief Complaint "Yeah, what's going on? I need to get back to rehab." Review of Systems Notes Constitutional: denied Cardiovascular: denied Respiratory: denied Gastrointestinal: denied Neurological: denied Psychiatric: denies symptoms other than stated above Total of at least 10 systems reviewed, pertinent positives as above and in HPI. Sleep Information Total Hours of Sleep: 9 Sleep Comments: pt appeared to sleep 2 hrs during evening shift. pt on q-15 mnute checks Meal Information Percent Meal Consumed - Breakfast: 100 Percent Meal Consumed - Lunch: 100 Percent Meal Consumed - Dinner: 100 Subjective Subjective Patient was seen & assessed and interval progress reviewed with treatment team. Staff report the patient was somewhat upset to learn that plans for rehab referrals had been adjusted. After receiving some information about a recommended facility closer to home, the patient became excited again about her treatment course and plans to attend D&A rehab after discharge. It has been reported that the facility is requesting a valproic acid level, and patient was compliant with this. Pt was seen today to assess progress since admission. Pt admits that she is frustrated, as her plan was to be back to a rehab facility by this time. Pt states, "you guys aren't able to help me with my drug use here, I need to go somewhere else." Pt was visibly frustrated when requesting clarification about current discharge plans. Options were reviewed with the patient, to include: possible direct acceptance from this facility to an inpatient D&A rehab facility, discharge to home today with recommendation to continue rehab attempts on and outpatient basis with family assistance, or discharge to home/rehab tomorrow prior to the expiration of her 302. After explanation of what our staff is doing to assist in the referral process, patient became more calm and was more understanding or our desire to help her reach her goals. Pt states that she feels her mood is "good, I'm keeping my composure fine." She denies suicidal ideation, and states she is hopeful to go home today. She continues to verbalize her desire to go to a rehab facility. She does mention that her belongings have been brought to our facility from [facility] and that her therapist for that facility stopped by for a visit last evening. Pt denies acute needs or concerns. She denies any side effects from medication adjustments. Physical Exam Psychiatric Orientation: alert, oriented x 3 and cooperative Apperance: appropriately dressed, appropriately groomed and appeared stated age Eye Contact: good eye contact Motor Behavior: + psychomotor agitation (continues to appear restless) Speech: normal rate/rhythm/volume of speech (irritable tone when verbalizing frustrations about rehab referrals) Affect: + irritable affect Pt alternates between euthymic/energetic affect and mildly irritable affect. She is predominantly bright, smiling appropriately. She appears frustrated only when verbalizing frustrations surrounding changes in discharge planning. Mood: no depressed mood and no anxious mood "I'm keeping my composure, I'm ready to get to rehab. I don't need to be here anymore." Thought Process: goal directed thought process, clear/coherent thought process and thought association intact Thought Content: reality based without delusions; no hopelessness Suicidal Thoughts: denies suicidal thoughts, denies suicidal plan and denies suicidal intent Homicidal Thoughts: denies homicidal thoughts Hallucinations: no auditory hallucinations and no visual hallucinations Cognition: remote memory grossly intact, attention grossly intact and language grossly intact Estimated Intelligence: consistent with education level Insight: + fair insight Judgement: + fair judgement Vital Signs (Past 24 Hours) Last Vital Signs Temp 36.6 C 01/07/19 06:39 Pulse 88 01/07/19 06:40 Resp 18 01/07/19 06:39 BP 102/57 L 01/07/19 06:40 Pulse Ox 99 01/04/19 02:06 Results & Data Laboratory Results Laboratory Results - last 24 hr 01/07/19 08:34 Valproic Acid 113 H Current Inpatient Medications Current Inpatient Medications: Current Inpatient Medications Acetaminophen (Tylenol) 650 mg PO Q4H PRN PRN Reason: Headache or Minor Fever Stop: 02/03/19 02:01 Al Hydrox/Mg Hydrox/Simethicone (Maalox) 30 ml PO Q4H PRN PRN Reason: GI Upset Stop: 02/03/19 02:01 Bismuth Subsalicylate (Kaopectate) 15 ml PO PRN PRN PRN Reason: Loose Stool Stop: 02/03/19 02:01 Divalproex Sodium (Depakote Extended Release) 500 mg PO DAILY KYREE Stop: 02/03/19 13:14 Last Admin: 01/06/19 09:37 Dose: 500 mg Documented by: Divalproex Sodium (Depakote Extended Release) 1,500 mg PO HS KYREE Stop: 02/05/19 21:59 Last Admin: 01/06/19 21:34 Dose: 1,500 mg Documented by: Haloperidol (Haldol) 2.5 mg PO BID PRN PRN Reason: Agitation Stop: 02/03/19 20:59 Last Admin: 01/06/19 17:21 Dose: 2.5 mg Documented by: Hydroxyzine HCl (Vistaril) 50 mg PO HSZ PRN PRN Reason: Insomnia Stop: 02/03/19 02:01 Last Admin: 01/05/19 22:16 Dose: 50 mg Documented by: Hydroxyzine HCl (Vistaril) 25 mg PO Q4H PRN PRN Reason: Anxiety Stop: 02/03/19 02:01 Last Admin: 01/06/19 19:32 Dose: 25 mg Documented by: Magnesium Hydroxide (Milk Of Magnesia) 30 ml PO DAILY PRN PRN Reason: Constipation Stop: 02/03/19 02:01 Miscellaneous (Remove Nicoderm Patch) 1 ea N/A HS KYREE Stop: 02/03/19 20:59 Last Admin: 01/06/19 21:41 Dose: 1 ea Documented by: Nicotine (Nicoderm Cq) 21 mg TD QAM KYREE Stop: 02/03/19 12:59 Last Admin: 01/06/19 09:37 Dose: 21 mg Documented by: Nicotine Polacrilex (Nicorette 2mg) 1 piece MT PRN PRN PRN Reason: cravings Stop: 02/03/19 12:05 Last Admin: 01/06/19 19:26 Dose: 1 piece Documented by: Sodium Chloride (Alleghany Nasal) 1 - 2 sprays NA PRN PRN PRN Reason: Nasal Dryness/Congestion Stop: 02/03/19 02:01 Mental Health & Subst Abuse Tx Therapist Name of Therapist: Hilda @ [facility] [employer] Name of Sharepoint Net Developer: Denies Post Discharge Appointments Primary Care Physician Name Of Family Doctor: Dr. Enmanuel Odell CPT Code CPT Code 32693 (1) Bipolar disorder Active/Remission status: currently active Current bipolar episode type: manic Current episode severity: moderate Qualified Code(s): F31.12 - Bipolar disorder, current episode manic without psychotic features, moderate
[2019-01-08] MEDS: DIVALPROEX EXTENDED RELEASE 500 MG TAB PO SCH (08:34)
[2019-01-08] MEDS: NICOTINE 21 MG/24 HR TDSY TD SCH (08:34)
--- NOTE | 2019-01-08 09:38 | Discharge Summary ---
Date of Service January 08, 2019 History of Present Illness 18 yr old female with bipolar d/o and substance use disorder of meth and cannabis usage. Pt has had extensive substance treatment recently and was sent to the ER from [facility] on 01/03 due to suicidal concerns and agitated behaviors. Pt had been obtaining treatment at "[facility]" for "17 days" and decided that she did not find it helpful enough and thus switched to [facility] for her treatment. By her description she appeared to have been Sent to the ER while in midst of intake/admission assessments at [facility]. This would be her 2nd [facility] treatment as had one staeting late July 2018 for 30 days that followed with [facility] (equine based treatment) from [id number]. She reports she maintained her sobriety from then till October 16 and then began using meth daily with last usage Dec 14, 2018. She reported using meth few times a few times a week prior to her August in substance treatment and that been using it for about a year or so now. Pt uses cannabis frequently as well However she appears invested in continuing her cannabis usage and made comments about seeking a medical card for it. She denied alcohol usage. She smokes cigs at about 1 ppd. She endorsed using Xanax or Klonopin at times to settle her down when intoxicated from meth with last usage of it in mid November. She denied h/o Suicide attempts or SIB. She denied HI. She endorsed being manic and having been manic for some time now. She reports that she has been on Depakote for number of years. She reports Risperdal was added while at [facility]. She feels Risperdal has not been helpful. Pt has found Haldol to be quite helpful in the past. Another med that she found helpful in the past was Seroquel. She reports having a psychiatrist, Dr. holm at [facility]. She reports having IOP treatment in June 2018. She reports that last saw her outpt therapist perhaps Mar 2018. It appears she has not been to the IOP since July but staff writer not certain. Pt was adopted in first months of life, was cocaine positive at [facility]. Pt endorses times of AH madina when high on meth. She denied AH currently. She feels she has ADHD but staff writer is wondering if she is more referring to her racing thoughts and increased goal directed activity tied to her manic states. She reports that depakote was increased to 2250mg total dose, (paper shows 500mg am and 750mg 3pm with pt indicating a bedtime dose of perhaps 500mg as well), Risperdal 0.5mg am and 0.5mg 1pm and 1mg 9pm. Pt reports also taking trazodone 200mg hs (not on paper by the retreat but paper does seem to possibly go past the one page staff writer has access to.) Pt is highly invested in returning to [facility]. She has pressured speech, racing thoughts, labile mood, psychomotor agitation, hard to sit still, hard to remain on one subject, tangential thinking, increased goal directed behavior., decreased sleep Physical Exam Psychiatric Orientation: alert and oriented x 3 Apperance: appropriately dressed, appropriately groomed and appeared stated age Eye Contact: good eye contact Motor Behavior: steady gait and station Speech: normal rate/rhythm/volume of speech Bright Thought Process: goal directed thought process and linear/logical thought process Thought Content: reality based without delusions Suicidal Thoughts: denies suicidal thoughts Homicidal Thoughts: denies homicidal thoughts Hallucinations: no auditory hallucinations Cognition: recent memory grossly intact, remote memory grossly intact and l anguage grossly intact Estimated Intelligence: + above average estimated intelligence Insight: + fair insight Judgement: + fair judgement Vital Signs (Past 24 Hours) Last Vital Signs Temp 36.8 C 01/08/19 09:18 Pulse 99 H 01/08/19 09:18 Resp 18 01/08/19 09:18 BP 107/65 01/08/19 09:18 Pulse Ox 99 01/08/19 09:18 Principal Diagnosis Bipolar II Psychiatric Data During the course of hospitalization the patient was offered various modalities of psychiatric treatment and education. These included individual, group, and activity therapies, as as well as family interventions. In addition, the patient was provided with pharmacologic interventions. Her outpatient dose of Depakote was titrated to a dose of 500 mg in the morning and 1500 mg at bedtime. However, the dose was tapered to a dose of 500 mg in the morning and 1000 mg at bedtime after, on 01/07/2019, the patient's serum Depakote level was measured as above the normal therapeutic range (113). She is also placed on haloperidol 2.5 mg twice daily (as needed) but she experienced an acute dystonic reaction, and this medication was discontinued. Subsequently, she was placed back on a me dication that she had tolerated well on an outpatient basis, namely risperidone at a dose of 0.5 mg in the morning and 1 mg at bedtime. The patient focused on her history of substance abuse and, in particular, on her history of abuse of methamphetamine. She said that she used methamphetamine 2 help keep her focused and alert. The patient reports that she was typically smoking "one rock and sometimes more" per day. She explained that on or about December 14 she accidentally dropped the pipe that she had been using to smoke methamphetamine and it shattered. The patient took this as a "sign from God," and decided that she needed to enter rehab. She subsequently entered rehab at a facility in [facility] and stayed for 3 weeks, but said that she was dissatisfied because the program did not have "any spiritual basis," and she felt that her best chance for recovery would involve an emphasis on her spiritual beliefs. Accordingly, she requested a transfer to [facility], here in [facility], but, as noted above, during the admission process she reportedly made suicidal statements. The patient says that she most certainly did not make suicidal statements but, instead, acknowledged that she had had thoughts of "people cutting themselves," but had specifically reported that she, herself, was not considering cutting herself or otherwise causing physical harm. The patient consistently denied any thoughts of intentional self-injurious behaviors in the hospital, and she was clearly future oriented throughout the stay. Although the patient remained perhaps mildly hypomanic, she slept well, and her effusive nature was described as her baseline by the patient and by her family. The patient's mother assisted by identifying a residential treatment program in the [facility] to which the patient could be transferred "in about 2 days," and at discharge the plan is for the patient to return home with her parents and then proceed to [place] for continued drug rehabilitation. The patient voiced a firm commitment to the cessation of the use of all nonprescribed chemical substances, including, but not limited to, methamphetamine, marijuana, and alcohol. Day of Discharge Assessment On the day of discharge, the patient was pleasant, cooperative, and appropriately dressed and groomed. Her speech was spontaneous, and she was somewhat "talkative," but her speech was not pressured. She reported that her mood was "good," and the patient's affect was bright without being elated or expansive. The patient's thought processes were generally tight, although she at times was slightly tangential. The patient's thought content was devoid of any psychotic features. She focuses primarily on her struggle to achieve and maintain abstinence from methamphetamine. She also acknowledges that she does experience mood alterations and voices insight into her need to continue treatment that will include mood stabilizing medications. The patient's judgment and insight are at least fair. Her intelligence is assessed as being above average. She reports that she is not having any suicidal thoughts or any other thoughts of intentional self injurious behaviors. She also reports that she is not having any thoughts of causing physical harm to the person or property of others. Transition of Care Transition Of Care Record: was reviewed with the patient Advance Directives Advance Directives Information Provided: Yes Advance Directives: No Mental Health Advance Directive: No Advance Directives on File: No Living Will: No Power of Renal Social Worker: No Advance Directives Reason:: Declines as Mental Health Visit. Risk Factors Assessment The patient's risk is influenced by her psychiatric diagnosis, her gender, and her history of the abuse of mood altering chemical substances. It is favorably mitigated by her commitment to treatment, the fact that she has been abstinent from chemical substances for more than 3 weeks (albeit within the context of chemical dependency residential treatment and hospitalization), and a supportive family. She also reports that she has a good relationship with her outpatient psychiatrist in the [facility]. Male: No : No Mental Health Diagnoses: Yes Substance Use Disorders: Yes Previous Attempt: No Smoker: Yes Protective Factors Assessment Quaker Beliefs: Yes : No Responsible for Young Children: No Employed: No Stable Relationships: Yes Supportive Family: Yes Good Rapport with Provider: Yes Absence of Any Risk Factors Above: No Tobacco Cessation at Discharge Tobacco Cessation Medication Prescribed at Discharge: Offered & Prescribed Total Time Total Time Spent: Greater Than 30 Minutes Total Time Includes: Examination of the patient, Discharge Planning, Medication Reconciliation and Communication with other providers Discharge Data Consultations 01/04/19 01:41 ED Decision to Admit Stat Lab Results 01/03/19 01/03/19 01/03/19 20:57 20:57 20:57 WBC 8.00 RBC 4.25 Hgb 11.8 L Hct 35.6 L MCV 83.8 MCH 27.8 MCHC 33.1 RDW Std Deviation 43.4 RDW Coeff of Keerthi 14.2 Plt Count 313 MPV 10.3 Immature Gran % (Auto) 0.3 Neut % (Auto) 38.6 Lymph % (Auto) 50.0 [place] % (Auto) 7.4 Eos % (Auto) 3.1 Baso % (Auto) 0.6 Immature Gran # (Auto) 0.02 Neut # (Auto) 3.09 Lymph # (Auto) 4.00 H [place] # (Auto) 0.59 Eos # (Auto) 0.25 Baso # (Auto) 0.05 Sodium 141 Potassium 3.5 Chloride 106 Carbon Dioxide 28 Anion Gap 6.0 BUN 15 Creatinine 0.82 Est Cr Clr Drug Dosing 111.3 Est GFR ( Amer) 120.2 Est GFR (Non-Af Amer) 103.7 BUN/Creatinine Ratio 17.9 Glucose 85 Calcium 9.2 Total Bilirubin 0.1 L AST 15 ALT 14 Alkaline Phosphatase 82 Total Protein 8.0 Albumin 4.0 Globulin 4.0 Albumin/Globulin Ratio 1.0 TSH 3.110 HCG, Qual Urine Color Urine Appearance Urine pH Ur Specific [place] Urine Protein Urine Glucose (UA) Urine Ketones Urine Blood Urine Nitrite Urine Bilirubin Urine Urobilinogen Ur Leukocyte Esterase Nasal Screen MRSA (PCR) Salicylates 1.9 L Urine Opiates Screen Ur Methadone, Qual Acetaminophen < 2 L Urine Barbiturates Valproic Acid 92 Ur Phencyclidine (PCP) U Amphetamin/Meth Scrn MDMA (Ecstasy) Screen U Benzodiazepines Scrn Ur Cocaine Metabolite U Marijuana (THC) Screen Ethyl Alcohol mg/dL 01/03/19 01/03/19 01/03/19 20:57 20:57 20:57 WBC RBC Hgb Hct MCV MCH MCHC RDW Std Deviation RDW Coeff of Keerthi Plt Count MPV Immature Gran % (Auto) Neut % (Auto) Lymph % (Auto) [place] % (Auto) Eos % (Auto) Baso % (Auto) Immature Gran # (Auto) Neut # (Auto) Lymph # (Auto) [place] # (Auto) Eos # (Auto) Baso # (Auto) Sodium Potassium Chloride Carbon Dioxide Anion Gap BUN Creatinine Est Cr Clr Drug Dosing Est GFR ( Amer) Est GFR (Non-Af Amer) BUN/Creatinine Ratio Glucose Calcium Total Bilirubin AST ALT Alkaline Phosphatase Total Protein Albumin Globulin Albumin/Globulin Ratio TSH HCG, Qual Negative Urine Color Urine Appearance Urine pH Ur Specific [place] Urine Protein Urine Glucose (UA) Urine Ketones Urine Blood Urine Nitrite Urine Bilirubin Urine Urobilinogen Ur Leukocyte Esterase Nasal Screen MRSA (PCR) Salicylates Urine Opiates Screen Ur Methadone, Qual Acetaminophen Urine Barbiturates Valproic Acid Cancelled Ur Phencyclidine (PCP) U Amphetamin/Meth Scrn MDMA (Ecstasy) Screen U Benzodiazepines Scrn Ur Cocaine Metabolite U Marijuana (THC) Screen Ethyl Alcohol mg/dL < 3.0 01/03/19 01/03/19 01/04/19 21:10 21:10 09:15 WBC RBC Hgb Hct MCV MCH MCHC RDW Std Deviation RDW Coeff of Keerthi Plt Count MPV Immature Gran % (Auto) Neut % (Auto) Lymph % (Auto) [place] % (Auto) Eos % (Auto) Baso % (Auto) Immature Gran # (Auto) Neut # (Auto) Lymph # (Auto) [place] # (Auto) Eos # (Auto) Baso # (Auto) Sodium Potassium Chloride Carbon Dioxide Anion Gap BUN Creatinine Est Cr Clr Drug Dosing Est GFR ( Amer) Est GFR (Non-Af Amer) BUN/Creatinine Ratio Glucose Calcium Total Bilirubin AST ALT Alkaline Phosphatase Total Protein Albumin Globulin Albumin/Globulin Ratio TSH HCG, Qual Urine Color Yellow Urine Appearance Clear Urine pH 6.5 Ur Specific [place] 1.014 Urine Protein Negative Urine Glucose (UA) Negative Urine Ketones Negative Urine Blood Negative Urine Nitrite Negative Urine Bilirubin Negative Urine Urobilinogen Negative Ur Leukocyte Esterase Negative Nasal Screen MRSA (PCR) Negative Salicylates Urine Opiates Screen Neg Ur Methadone, Qual Neg Acetaminophen Urine Barbiturates Neg Valproic Acid Ur Phencyclidine (PCP) Neg U Amphetamin/Meth Scrn Neg MDMA (Ecstasy) Screen Neg U Benzodiazepines Scrn Neg Ur Cocaine Metabolite Neg U Marijuana (THC) Screen Neg Ethyl Alcohol mg/dL 01/07/19 08:34 WBC RBC Hgb Hct MCV MCH MCHC RDW Std Deviation RDW Coeff of Keerthi Plt Count MPV Immature Gran % (Auto) Neut % (Auto) Lymph % (Auto) [place] % (Auto) Eos % (Auto) Baso % (Auto) Immature Gran # (Auto) Neut # (Auto) Lymph # (Auto) [place] # (Auto) Eos # (Auto) Baso # (Auto) Sodium Potassium Chloride Carbon Dioxide Anion Gap BUN Creatinine Est Cr Clr Drug Dosing Est GFR ( Amer) Est GFR (Non-Af Amer) BUN/Creatinine Ratio Glucose Calcium Total Bilirubin AST ALT Alkaline Phosphatase Total Protein Albumin Globulin Albumin/Globulin Ratio TSH HCG, Qual Urine Color Urine Appearance Urine pH Ur Specific [place] Urine Protein Urine Glucose (UA) Urine Ketones Urine Blood Urine Nitrite Urine Bilirubin Urine Urobilinogen Ur Leukocyte Esterase Nasal Screen MRSA (PCR) Salicylates Urine Opiates Screen Ur Methadone, Qual Acetaminophen Urine Barbiturates Valproic Acid 113 H Ur Phencyclidine (PCP) U Amphetamin/Meth Scrn MDMA (Ecstasy) Screen U Benzodiazepines Scrn Ur Cocaine Metabolite U Marijuana (THC) Screen Ethyl Alcohol mg/dL Hospital Course (1) Suicidal thoughts: - Admitted to a locked inpatient behavioral health unit, on q15 minute safety checks - Encourage medication initiation/adjustments as indicated - Encourage participation in group and recreational therapies - Gather collateral information from outpatient providers - Suggest family meeting to involve outpatient supports in safety planning - Arrange appropriate aftercare 01/05 - Pt denies SI, stating she was not suicidal at admission - she does admit to making provocative statements at [facility] which would have created concern for patient safety 01/06 - Pt continues to deny SI, is future oriented in conversation, and remains highly motivated to get to an inpatient D&A rehab facility after discharge - No acute safety concerns at this time 01/08 -The patient continues to report that she never had thoughts of suicide and that the admission coordinator or evaluating clinician at [facility] misunderstood what she was saying. She is clearly future oriented and motivated to recovery. (2) Bipolar disorder: 01/04 -resume Depakote Er will start at 500mg am and 1000ms hs given above and current presentation -stop risperdal -started haldol at 2.5mg bid scheduled with haldol 2.5mg prn bid for agitation as well -individual and group therapy during inpt milieu therapy aftercare coordination including psychotherapy and psychiatric appointments, although pt is aiming for inpt substance treatment following discharge social work holding any trazodone for now given potential for that med to destabilize pt given her manic symptoms 01/05 - Continue Depakote 500mg/1000mg - patient continues to appear manic - may require further titration of dosage - Haloperidol was only ordered 2.5mg BID prn - will continue with only prn dosing - as patient has openly given her reasoning for requesting doses to be "to take a nap" or "to chill, like a Xanny"; given patient seems to be utilizing the medication with intention to fulfil addictive traits, will refrain from scheduling additional medication at this time - Pt continues to report desire to return to [facility] at discharge; we have been told the facility will consider another admission when patient is appropriate for referral 01/06 - Pt is agreeable to titration of Depakote to 500mg/1500mg daily in attempts to further stabilize mood, as she continues to display a manic presentation - Will continue attempts to explore if [facility] will consider the patient for return after discharge from our facility 01/07 - Pt to continue Depakote at 500mg/1500mg daily for mood stabilization, she denies side effects from medication adjustment made yesterday - Valproic acid level was requested from rehab facility, level was 113. Level drawn this AM is not a true 24-hour trough due to BID dosing schedule. She denies side effects, no AMS, and does not appear to be toxic. As is the nature of Depakote, level will need to be monitored periodically and dose adjusted to adequately treat mood symptoms - Pt appears to be psychiatrically stable with no acute safety concerns, seems appropriate to continue treatment in an inpatient D&A rehabilitation facility that is better equipped to address her most significant ongoing concerns of substance abuse 01/08 -Although the Depakote level measured on 01/07/2019 may not have been a true trough level, we decided to decrease her dose of Depakote from 500 mg in the morning and 1500 mg at bedtime to a dose of 500 mg in the morning and 1000 mg at bedtime. The patient's mood appears to be stable, and although she is somewhat effusive, reports are that this is the patient's long-standing baseline. (3) Substance use disorder: 01/04 -address with [facility] to see about discharge to their facility once psychiatric stabilized, for inpt substance treatment -nicotine patch and nicotine gum for NUD 01/05 - Continue efforts to determine if patient would be accepted back at [facility] at discharge - Continue recovery protocol -Brief intervention was offered and accepted Intervention was greater than 5 min in length. Brief interventions include: 1. Assess Readiness to Quit, 2. Advise: Help Patient to Reduce or Abstain from Alcohol, 3. Agree: Set Specific, Feasible Goals, 4. Assist: Anticipate barriers, Problem-Solving Solutions. Social work to 5. Arrange: Referrals to appropriate treatment. Summary of intervention: The patient is in contemplative stage with regards to transtheoretical model of change. She reports motivation to remain sober, but her verbalized plan relies on extrinsic motivation and there is a decent amount of blame placing with regard to past treatment roadblocks. The patient is advised to decrease alcohol consumption due to depressant effects and risk of interactions with prescription medications. The patient was advised of recommendations for abstinence from alcohol and other abusable substances and to attend substance abuse treatment at discharge, and will be provided with recovery materials to continue to education self on how to cope with their condition without drinking. 01/07 - Pt continues to be highly focused on returning to an inpatient D&A rehab facility to begin her substance abuse treatment - We are now exploring a facility called [facility], pt informed of program and is hopeful for admission - If unable to get transfer from our facility, it is recommended that patient and family continue attempts at rehab admission on an outpatient basis as patient remains motivated for treatment 01/08 -The patient's mother has identified a residential chemical dependency treatment program in the [facility], and the patient expresses an intent to participate in this program. Evidently, there will be a delay of several days (approximately 2 days) and during this period the patient will live with her mother and father, and a grandmother. Mental Health & Subst Abuse Tx Psychiatrist Name of Psychiatrist: [facility] - Dr. Holm Psychiatrist's Date of Appointment with Psychiatrist: 02/23/19 Time of Appointment with Psychiatrist: 8am - also on the cancellation list. Psychiatric Appointment Comment: [address], [place] [address] Therapist Name of Therapist: Hilda @ [facility] Fruit Buying Grader Name of Fruit Buying Grader: Denies Post Discharge Appointments Primary Care Physician Name Of Family Doctor: [facility] - Dr. Enmanuel Odell Primary Care Time of Appointment with PCP: follow up as needed. Provider Appointment Comment: [address], [address], [place] [address] Partial or Psych Rehab Name of Partial or Psych Rehab: [facility] Phone Number of Partial or Psych Rehab: [phone] Partial or Psych Rehab Appointment Comment: [address] [place] [address] Smoking Cessation Counseling Tobacco Cessation Medication Prescribed at Discharge: Offered & Prescribed Tobacco Cessation Counseling: Offered and Refused Discharge Plan Discharge Items Patient Disposition: Home - Self-Care Reason For Visit: BIPOLAR DISORDER Discharge Diagnosis: Bipolar II Activity: Resume your previous activity Non-emergency contact: Psychiatrist Call non-emergency contact if: you have any medication questions and your symptoms worsen Follow-up/Referrals: PCP,NO [Primary Care Provider] - Diet: Regular Addtl Attending Provider Instructions: Finalize your plans for Rehab. Avoid ALL non-prescribed drugs, including alcohol. Pending Studies at Discharge: No Stand-Alone Forms: [facility] Medications and DC Order Prescriptions: New divalproex 500 mg Tablet Extended Release 24 Hr 500 mg PO DAILY Qty: 30 RF: 0 nicotine [Nicoderm CQ] 21 mg/24 hr Patch 24 Hour 21 mg transdermal QAM Qty: 14 RF: 0 divalproex 500 mg tablet extended release 24 hr 1,000 mg PO DAILY Qty: 60 RF: 0 risperidone 1 mg tablet 1 mg PO HS Qty: 30 RF: 0 risperidone 0.5 mg tablet 0.5 mg PO DAILY Qty: 30 RF: 0 Discontinued azithromycin 250 mg Tablet 250 mg PO DAILY RF: 0 risperidone [Risperdal] 0.25 mg Tablet 0.5 mg PO BID RF: 0 divalproex [Depakote ER] 500 mg Tablet Extended Release 24 Hr 750 mg PO DAILY RF: 0 risperidone [Risperdal] 1 mg Tablet 1 mg PO HS RF: 0 Discharge Orders: Discharge Order (Routine); Ordered 01/08/19 Ordered By: Sarkis Segundo Admission Data Admit Date/Time: 01/04/19 01:31 Attending Provider: Melvin Vidal I Admit Provider: Melvin Vidal I Primary Care Provider: PCP,NO Other Providers: Melvin Vidal I Other Interventions: Discharge Summary Assessment (RN) Last Done: 01/08/19 09:18 PSY Interdisciplinary Discharge Planning Last Done: 01/08/19 09:22
[2019-01-08] MEDS ORDERED: risperiDONE 0.5 MG TABLET PO SCH (22:00)
== END 2019-01-08 11:45 | disposition home or self-care (01) | DRG 885 ==
LOC: ED 20:29 → 3S 01-04 01:31